=== PATIENT | female | born 1975 | race Asian ===

== ENCOUNTER 2016-10-31 15:51 | Emergency (ER) | payer MEDICAID ==
[2016-10-31 16:06] VITALS: BP 128/82
--- NOTE | 2016-10-31 17:59 | EDM.PDOC ---
[id number]: BITE ON BACKSIDE, [id number] Time Seen by Provider: 10/31/16 17:59 Source of Information: Reports: Patient, RN, RN Notes Reviewed History Limitations: Reports: No Limitations - History of Present Illness INITIAL COMMENTS - FREE TEXT/NARRATIVE: C/O abscess on Rt buttock. Onset 1 week ago of either an insect bite or a pimple on the Rt buttock. Pt tried to squeeze and pop it, but the next day it was much larger and red. Now for the past several days the area has become red, hot, firm/swollen and very painful. Denies fever or chills. No spontaneous drainage. Duration: Week(s): (1) Quality: Reports: Ache, Throbbing Severity: Severe Improves with: Reports: None Worsens with: Reports: None Associated Symptoms: Reports: No Other Symptoms Rectal Pain Score (Numeric/FACES): 8 - Related Data Allergies Allergy/AdvReac Type Severity Reaction Status Date / Time morphine Allergy Hallucinati Verified 10/31/16 16:07 ons Sulfa (Sulfonamide Allergy Hives Verified 10/31/16 16:07 Antibiotics) sulfamethoxazole Allergy Hives Verified 10/31/16 16:07 [From Bactrim] trimethoprim [From Bactrim] Allergy Hives Verified 10/31/16 16:07 Home Meds: Home Meds Acetaminophen [Tylenol] 975 mg PO ASDIRECTED PRN 10/31/16 [History] Ibuprofen [IJP: Ibuprofen] 600 mg PO ASDIRECTED 10/31/16 [History] Past Medical History HEENT History: Reports: None Cardiovascular History: Reports: None Respiratory History: Reports: None Gastrointestinal History: Reports: None Genitourinary History: Reports: None Musculoskeletal History: Reports: None Neurological History: Reports: None Psychiatric History: Reports: None Endocrine/Metabolic History: Reports: None Hematologic History: Reports: None Immunologic History: Reports: None Oncologic (Cancer) History: Reports: None Dermatologic History: Reports: None - Infectious Disease History Infectious Disease History: Reports: Chicken Pox, Mumps - Past Surgical History Head Surgeries/Procedures: Reports: None Social & Family History - Family History Family Medical History: Noncontributory - Tobacco Use Smoking Status *Q: Never Smoker Second Hand Smoke Exposure: No - Caffeine Use Caffeine Use: Reports: Coffee, Soda - Recreational Drug Use Recreational Drug Use: No - Living Situation & Occupation Living situation: Reports: , with Family Occupation: Employed ED ROS GENERAL - Review of Systems Review Of Systems: ROS reveals no pertinent complaints other than HPI. ED EXAM, ANIMAL BITE - Physical Exam Exam: See Below Exam Limited By: No Limitations General Appearance: Alert, WD/WN, No Apparent Distress, Obese Respiratory/Chest: No Respiratory Distress, Lungs Clear, Normal Breath Sounds, No Accessory Muscle Use, Chest Non-Tender Cardiovascular: Regular Rate, Rhythm Back Exam: Normal Inspection Extremities: Normal Inspection Neurological: Alert, Oriented, Normal Cognition, Normal Gait, No Motor/Sensory Deficits Psychiatric: Normal Affect, Normal Mood Skin Exam: Other (Rt buttock abscess 4cm diameter of tender, erythematous, fluctuant surface with 8cm liss. erythema.) ED ANIMAL BITE PROCEDURES - I&D Site: Rt buttock Skin Prep: Chlorhexidine (Hibiciens), Saline Local Anesthesia: Lidocaine: 1% Plain Local Anesthetic Volume: Other (30cc) Area Incised With: 11 Blade Drainage: Purulent, Large Amount Probed to Break Up Loculations: Yes Packed With: 1/4 in. Iodoform Sterile Dressinx4(s) Complications: No Course - Vital Signs Last Recorded V/S: Last Vital Signs Temp 35.3 C 10/31/16 15:59 Pulse 81 10/31/16 15:59 Resp 16 10/31/16 15:59 BP 128/82 10/31/16 15:59 Pulse Ox 99 10/31/16 15:59 - Orders/Labs/Meds Orders: Active Orders 24 hr Category Date Time Status CULTURE WOUND [RM] Stat Lab 10/31/16 19:10 Received Meds: Medications Discontinued Medications Generic Name Dose Route Start Last Admin Trade Name Tyshawn PRN Reason Stop Dose Admin Bacitracin 1 dose 10/31/16 18:09 10/31/16 19:22 Bacitracin Oint 1 Gm TOP 10/31/16 18:10 1 dose ONETIME ONE Administration Cephalexin 500 mg 10/31/16 18:10 10/31/16 18:49 Keflex PO 10/31/16 18:11 500 mg ONETIME ONE Administration Clindamycin HCl 300 mg 10/31/16 18:10 10/31/16 18:48 Cleocin PO 10/31/16 18:11 300 mg ONETIME ONE Administration Ketorolac Tromethamine 60 mg 10/31/16 18:09 10/31/16 18:50 Toradol IM 10/31/16 18:10 60 mg ONETIME ONE Administration Lidocaine HCl 30 ml 10/31/16 18:11 10/31/16 19:10 Xylocaine-Mpf 1% INJECT 10/31/16 18:12 30 ml ONETIME ONE Administration Departure - Departure Time of Disposition: 19:22 Disposition: Home, Self-Care 01 Condition: good Clinical Impression: Abscess of buttock, right - Discharge Information Instructions: Incision and Drainage, Care After, Abscess Forms: ED Department Discharge Additional Instructions: RX: [place] 5mh/325mg. RX: Clindamycin 300mg. Twice daily dressing changes. Follow up in 2 days for removal of packing and recheck. Return to ER if worse at any time. - My Orders Last 24 Hours: My Active Orders 10/31/16 19:10 CULTURE WOUND [RM] Stat - Assessment/Plan Last 24 Hours: My Active Orders 10/31/16 19:10 CULTURE WOUND [RM] Stat
[2016-10-31] MEDS ORDERED: Bacitracin Oint 1 GM U/D Packet TOP ONE (18:09)
[2016-10-31] MEDS ORDERED: Ketorolac 30 MG/ML SDV IM ONE (18:09)
[2016-10-31] MEDS ORDERED: Clindamycin HCl 150 MG Cap PO ONE (18:10)
[2016-10-31] MEDS ORDERED: Cephalexin 500 MG Cap PO ONE (18:10)
[2016-10-31] MEDS ORDERED: Lidocaine 1% 30 ML SDV INJECT ONE (18:11)
== END 2016-10-31 19:42 | disposition home or self-care (01) ==
LOC: DL.ED 15:51 → EEVIPCON 15:51 → EDSEX 15:51 → DL.ED 19:42
DX: L02.31 Cutaneous abscess of buttock (principal); Z88.5 Allergy status to narcotic agent; Z88.2 Allergy status to sulfonamides; Z88.8 Allergy status to other drugs, medicaments and biological substances; Z88.1 Allergy status to other antibiotic agents
CPT/HCPCS: 10060; 87070; 87077; 87186; 96372; 99283; A9270; J1885; 10061; 99282

== ENCOUNTER 2017-03-02 10:47 | Emergency (ER) | payer MEDICAID ==
[2017-03-02 11:36] VITALS: BP 132/81
--- NOTE | 2017-03-02 12:12 | EDM.PDOC ---
ED HPI GENERAL MEDICAL PROBLEM - General Chief Complaint: General Stated Complaint: COUGH, FEVER Time Seen by Provider: 03/02/17 12:06 Source of Information: Reports: Patient History Limitations: Reports: No Limitations - History of Present Illness INITIAL COMMENTS - FREE TEXT/NARRATIVE: 41 yo white female c/o cough w/ postnasal drip. Onset Date: 02/23/17 Onset Time: 12:00 Duration: Day(s): Location: Reports: Head, Chest Severity: Mild Improves with: Reports: None Worsens with: Reports: None Associated Symptoms: Reports: Cough - Related Data Allergies Allergy/AdvReac Type Severity Reaction Status Date / Time morphine Allergy Hallucinati Verified 03/02/17 11:31 ons Sulfa (Sulfonamide Allergy Hives Verified 03/02/17 11:31 Antibiotics) sulfamethoxazole Allergy Hives Verified 03/02/17 11:31 [From Bactrim] trimethoprim [From Bactrim] Allergy Hives Verified 03/02/17 11:31 Home Meds: Home Meds Acetaminophen [Tylenol] 975 mg PO ASDIRECTED PRN 10/31/16 [History] Ibuprofen [IJP: Ibuprofen] 600 mg PO ASDIRECTED 10/31/16 [History] Past Medical History HEENT History: Reports: Impaired Vision Cardiovascular History: Reports: None Respiratory History: Reports: None Gastrointestinal History: Reports: None Genitourinary History: Reports: None 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 Musculoskeletal History: Reports: None Neurological History: Reports: None Psychiatric History: Reports: None Endocrine/Metabolic History: Reports: None Hematologic History: Reports: None Immunologic History: Reports: None Oncologic (Cancer) History: Reports: None Dermatologic History: Reports: None - Infectious Disease History Infectious Disease History: Reports: Chicken Pox, Mumps - Past Surgical History Head Surgeries/Procedures: Reports: None Social & Family History - Family History Family Medical History: Noncontributory - Tobacco Use Smoking Status *Q: Former Smoker Used Tobacco, but Quit: Yes Month Tobacco Last Used: 02/20/17 Second Hand Smoke Exposure: No - Caffeine Use Caffeine Use: Reports: Coffee, Soda - Recreational Drug Use Recreational Drug Use: No - Living Situation & Occupation Living situation: Reports: , with Family Occupation: Employed ED ROS GENERAL - Review of Systems Review Of Systems: See Below Constitutional: Reports: No Symptoms HEENT: Reports: No Symptoms Respiratory: Reports: Cough (dry) Cardiovascular: Reports: No Symptoms Endocrine: Reports: No Symptoms GI/Abdominal: Reports: No Symptoms : Reports: No Symptoms Musculoskeletal: Reports: No Symptoms Skin: Reports: No Symptoms Neurological: Reports: No Symptoms Psychiatric: Reports: No Symptoms Hematologic/Lymphatic: Reports: No Symptoms Immunologic: Reports: No Symptoms ED EXAM, GENERAL - Physical Exam Exam: See Below Exam Limited By: No Limitations General Appearance: Alert, No Apparent Distress, Obese Eye Exam: Bilateral Eye: PERRL Ears: Normal External Exam Ear Exam: Bilateral Ear: TM Bulging Nose: Normal Inspection Throat/Mouth: Normal Inspection, Normal Lips Head: Atraumatic Neck: Normal Inspection, Supple Respiratory/Chest: No Respiratory Distress, Lungs Clear, Normal Breath Sounds Cardiovascular: Normal Peripheral Pulses GI/Abdominal: Normal Bowel Sounds Back Exam: Normal Inspection Extremities: Normal Inspection, Normal Range of Motion Neurological: Alert, Oriented, CN II-XII Intact Psychiatric: Normal Affect, Normal Mood Skin Exam: Warm, Dry, Intact Lymphatic: No Adenopathy Course - Vital Signs Last Recorded V/S: Last Vital Signs Temp 36.7 C 03/02/17 11:34 Pulse 80 03/02/17 11:34 Resp 18 03/02/17 11:34 BP 132/81 03/02/17 11:34 Pulse Ox 98 03/02/17 11:34 Departure - Departure Time of Disposition: 12:14 Disposition: Home, Self-Care 01 Condition: Good Clinical Impression: Congestion of paranasal sinus, Cough in adult patient - Discharge Information Additional Instructions: Increase fluids ( Water / Juice) Try using a Vics Vaporizer at home Wear face mask when at work ( due to coughing) For the sinus congestion: CLARITIN 10mg QD # 10 For the cough : TESSALON PERLES 100mg TID # 20 F/U w/ PCP
== END 2017-03-02 12:19 | disposition home or self-care (01) ==
LOC: DL.ED 10:47
DX: J34.89 Other specified disorders of nose and nasal sinuses (principal); R05 Cough; Z87.891 Personal history of nicotine dependence; Z88.1 Allergy status to other antibiotic agents; Z88.2 Allergy status to sulfonamides; Z88.5 Allergy status to narcotic agent
CPT/HCPCS: 99283

== ENCOUNTER 2017-08-24 16:51 | Emergency (ER) | payer BC, MEDICAID ==
[2017-08-24 17:06] VITALS: BP 140/82
[2017-08-24] MEDS ORDERED: Sodium Chloride 0.9% 10 ML Syringe FLUSH PRN (17:24)
[2017-08-24] MEDS ORDERED: Ondansetron 4 MG/2 ML SDV IV ONE (17:24)
[2017-08-24] MEDS ORDERED: Sodium Chloride 0.9% 1,000 ML IV ONE ×2 (17:24→18:40)
[2017-08-24 18:02] LABS: CHLORIDE,CL 101 mmol/L (101-111); SODIUM,NA 135 mmol/L (135-145)
[2017-08-24] MEDS ORDERED: Meclizine 12.5 MG Tab PO ONE (18:41)
--- NOTE | 2017-08-24 20:01 | EDM.PDOC ---
Addendum entered and electronically signed by Geovanni Mckay PA 08/24/17 19: 59: DX: Dehydration, Gastroenteritis Plan: The patient was advised of the examination and lab results during the visit. The patient was given IV fluids and a dose of Meclizine while in the ED. The patient was encouraged to stick to a BRAT diet over the next 24-48 hours. If the patient has any additional symptoms or concerns, the patient should either follow-up with her primary care facility or return to the emergency department. Original Note: Scribed by Sophie Lau 08/25/17 1557 for Maureen Luna NP ED HPI GENERAL MEDICAL PROBLEM - General Chief Complaint: Gastrointestinal Problem Stated Complaint: VERTIGO [id number] Time Seen by Provider: 08/24/17 17:15 - Related Data Allergies Allergy/AdvReac Type Severity Reaction Status Date / Time morphine Allergy Hallucinati Verified 03/02/17 11:31 ons Sulfa (Sulfonamide Allergy Hives Verified 03/02/17 11:31 Antibiotics) sulfamethoxazole Allergy Hives Verified 03/02/17 11:31 [From Bactrim] trimethoprim [From Bactrim] Allergy Hives Verified 03/02/17 11:31 Home Meds: Home Meds Acetaminophen [Tylenol] 975 mg PO ASDIRECTED PRN 10/31/16 [History] Ibuprofen [IJP: Ibuprofen] 600 mg PO ASDIRECTED 10/31/16 [History] ED ROS GENERAL - Review of Systems Review Of Systems: ROS reveals no pertinent complaints other than HPI. ED EXAM, GI/ABD - Physical Exam Exam: See Below Course - Vital Signs Last Recorded V/S: Last Vital Signs Temp 97.8 F 08/24/17 16:54 Pulse 100 08/24/17 16:54 Resp 18 08/24/17 16:54 BP 140/82 08/24/17 16:54 Pulse Ox 100 08/24/17 16:54 - Orders/Labs/Meds Orders: Active Orders 24 hr Category Date Time Status Peripheral IV Care [RC] . DIRECTED Care 08/24/17 17:24 Active HCG QUALITATIVE,URINE [URCHEM] Stat Lab 08/24/17 17:26 Ordered UA W/MICROSCOPIC [URIN] Stat Lab 08/24/17 17:26 Ordered Peripheral IV Insertion Adult [OM.PC] Stat Oth 08/24/17 17:23 Ordered Labs: Laboratory Tests 08/24/17 08/24/17 08/24/17 Range/Units 17:26 17:26 17:36 WBC 10.5 H (5.0-10.0) 10^3/uL RBC 4.84 (4.2-5.4) 10^6/uL Hgb 13.3 (12.0-16.0) g/dL Hct 40.5 (37.0-47.0) % MCV 83.7 (80-100) fL MCH 27.5 (27.0-34.0) pg MCHC 32.8 L (33.0-35.0) g/dL Plt Count 327 (150-450) 10^3/uL Neut % (Auto) 63.1 (42.2-75.2) % Lymph % (Auto) 28.2 (20.5-50.1) % [place] % (Auto) 6.3 (2-8) % Eos % (Auto) 2.2 (1.0-3.0) % Baso % (Auto) 0.2 (0.0-1.0) % Sodium (135-145) mmol/L Potassium (3.6-5.0) mmol/L Chloride (101-111) mmol/L Carbon Dioxide (21.0-31.0) mmol/L Anion Gap BUN (7-18) mg/dL Creatinine (0.6-1.3) mg/dL Est Cr Clr Drug Dosing mL/min Estimated GFR (MDRD) BUN/Creatinine Ratio Glucose (74-105) mg/dL Calcium (8.4-10.2) mg/dl Total Bilirubin (0.2-1.0) mg/dL AST (10-42) IU/L ALT (10-60) IU/L Alkaline Phosphatase (42-121) IU/L Troponin I (0.00-0.02) ng/ml Total Protein (6.7-8.2) g/dl Albumin (3.2-5.5) g/dl Globulin Albumin/Globulin Ratio Urine Color Yellow (YELLOW) Urine Appearance Clear (CLEAR) Urine pH 6.5 (5.0-9.0) Ur Specific [place] 1.025 (1.005-1.030) Urine Protein Negative (NEGATIVE) Urine Glucose (UA) Negative (NEGATIVE) Urine Ketones Negative (NEGATIVE) Urine Occult Blood Negative (NEGATIVE) Urine Nitrite Negative (NEGATIVE) Urine Bilirubin Negative (NEGATIVE) Urine Urobilinogen 0.2 (0.2-1.0) mg/dL Ur Leukocyte Esterase Trace H (NEGATIVE) Urine RBC 0-5 /HPF Urine WBC 0-5 (0-5/HPF) /HPF Ur Epithelial Cells Moderate H /HPF Urine Bacteria Few (0-FEW/HPF) /HPF Urine Mucus Moderate H /LPF Urine HCG, Qual Negative 08/24/17 Range/Units 17:36 WBC (5.0-10.0) 10^3/uL RBC (4.2-5.4) 10^6/uL Hgb (12.0-16.0) g/dL Hct (37.0-47.0) % MCV (80-100) fL MCH (27.0-34.0) pg MCHC (33.0-35.0) g/dL Plt Count (150-450) 10^3/uL Neut % (Auto) (42.2-75.2) % Lymph % (Auto) (20.5-50.1) % [place] % (Auto) (2-8) % Eos % (Auto) (1.0-3.0) % Baso % (Auto) (0.0-1.0) % Sodium 135 (135-145) mmol/L Potassium 3.5 L (3.6-5.0) mmol/L Chloride 101 (101-111) mmol/L Carbon Dioxide 26.0 (21.0-31.0) mmol/L Anion Gap 11.5 BUN 16 (7-18) mg/dL Creatinine 0.6 (0.6-1.3) mg/dL Est Cr Clr Drug Dosing 115.51 mL/min Estimated GFR (MDRD) > 60 BUN/Creatinine Ratio 26.66 Glucose 110 H (74-105) mg/dL Calcium 8.8 (8.4-10.2) mg/dl Total Bilirubin 0.7 (0.2-1.0) mg/dL AST 17 (10-42) IU/L ALT 18 (10-60) IU/L Alkaline Phosphatase 45 (42-121) IU/L Troponin I < 0.02 (0.00-0.02) ng/ml Total Protein 7.2 (6.7-8.2) g/dl Albumin 3.8 (3.2-5.5) g/dl Globulin 3.4 Albumin/Globulin Ratio 1.12 Urine Color (YELLOW) Urine Appearance (CLEAR) Urine pH (5.0-9.0) Ur Specific [place] (1.005-1.030) Urine Protein (NEGATIVE) Urine Glucose (UA) (NEGATIVE) Urine Ketones (NEGATIVE) Urine Occult Blood (NEGATIVE) Urine Nitrite (NEGATIVE) Urine Bilirubin (NEGATIVE) Urine Urobilinogen (0.2-1.0) mg/dL Ur Leukocyte Esterase (NEGATIVE) Urine RBC /HPF Urine WBC (0-5/HPF) /HPF Ur Epithelial Cells /HPF Urine Bacteria (0-FEW/HPF) /HPF Urine Mucus /LPF Urine HCG, Qual Meds: Medications Discontinued Medications Generic Name Dose Route Start Last Admin Trade Name Freq PRN Reason Stop Dose Admin Sodium Chloride 1,000 mls @ 999 mls/hr 08/24/17 17:24 08/24/17 17:44 Normal Saline IV 08/24/17 18:24 999 mls/hr .BOLUS ONE Administration Sodium Chloride 1,000 mls @ 999 mls/hr 08/24/17 18:40 08/24/17 18:43 Normal Saline IV 08/24/17 19:40 999 mls/hr .BOLUS ONE Administration Meclizine HCl 25 mg 08/24/17 18:41 08/24/17 18:45 Antivert PO 08/24/17 18:42 25 mg ONETIME ONE Administration Ondansetron HCl 4 mg 08/24/17 17:24 08/24/17 17:44 Zofran IV 08/24/17 17:25 4 mg ONETIME ONE Administration Sodium Chloride 10 ml 08/24/17 17:24 08/24/17 17:44 Saline Flush FLUSH 10 ml ASDIRECTED PRN Administration Keep Vein Open Departure - Departure Time of Disposition: 20:12 Disposition: Home, Self-Care 01 Clinical Impression: Gastroenteritis, Dehydration - Discharge Information Instructions: Viral Gastroenteritis, Adult, [id number], Dehydration, Adult, [id number] Referrals: PCP,None [Primary Care Provider] - Forms: ED Department Discharge - My Orders Last 24 Hours: My Active Orders 08/24/17 17:23 Peripheral IV Insertion Adult [OM.PC] Stat 08/24/17 17:24 Peripheral IV Care [RC] . DIRECTED 08/24/17 17:26 HCG QUALITATIVE,URINE [URCHEM] Stat UA W/MICROSCOPIC [URIN] Stat - Assessment/Plan Last 24 Hours: My Active Orders 08/24/17 17:23 Peripheral IV Insertion Adult [OM.PC] Stat 08/24/17 17:24 Peripheral IV Care [RC] . DIRECTED 08/24/17 17:26 HCG QUALITATIVE,URINE [URCHEM] Stat UA W/MICROSCOPIC [URIN] Stat I have read and agree with the documentation that has been completed regarding this visit. By signing this record, I attest that the documentation was completed in my physical presence and is an accurate record of the encounter.
--- NOTE | 2017-09-02 19:51 | EDM.PDOC ---
ED HPI GENERAL MEDICAL PROBLEM - General Chief Complaint: Gastrointestinal Problem Stated Complaint: VERTIGO [id number] Time Seen by Provider: 08/24/17 17:15 Source of Information: Reports: Patient, RN, RN Notes Reviewed History Limitations: Reports: No Limitations - History of Present Illness INITIAL COMMENTS - FREE TEXT/NARRATIVE: Pt presents to the ER with c/o dizziness and nausea. She states she has felt tired, dizzy, and very nauseated recently. She admits to feeling "hot and cold" , headache. She denies chest pain, sob, sore throat or cough. Onset: Gradual - Related Data Allergies Allergy/AdvReac Type Severity Reaction Status Date / Time morphine Allergy Hallucinati Verified 03/02/17 11:31 ons Sulfa (Sulfonamide Allergy Hives Verified 03/02/17 11:31 Antibiotics) sulfamethoxazole Allergy Hives Verified 03/02/17 11:31 [From Bactrim] trimethoprim [From Bactrim] Allergy Hives Verified 03/02/17 11:31 Home Meds: Home Meds Acetaminophen [Tylenol] 975 mg PO ASDIRECTED PRN 10/31/16 [History] Ibuprofen [IJP: Ibuprofen] 600 mg PO ASDIRECTED 10/31/16 [History] Past Medical History HEENT History: Reports: Impaired Vision Cardiovascular History: Reports: None Respiratory History: Reports: None Gastrointestinal History: Reports: None Genitourinary History: Reports: None 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 Musculoskeletal History: Reports: None Neurological History: Reports: None Psychiatric History: Reports: None Endocrine/Metabolic History: Reports: None Hematologic History: Reports: None Immunologic History: Reports: None Oncologic (Cancer) History: Reports: None Dermatologic History: Reports: None - Infectious Disease History Infectious Disease History: Reports: Chicken Pox, Mumps - Past Surgical History Head Surgeries/Procedures: Reports: None Social & Family History - Family History Family Medical History: Noncontributory - Tobacco Use Smoking Status *Q: Former Smoker Used Tobacco, but Quit: Yes Month/Year Tobacco Last Used: 02/20/17 Second Hand Smoke Exposure: No - Caffeine Use Caffeine Use: Reports: Coffee, Soda - Recreational Drug Use Recreational Drug Use: No - Living Situation & Occupation Living situation: Reports: , with Family Occupation: Employed ED ROS GENERAL - Review of Systems Review Of Systems: ROS reveals no pertinent complaints other than HPI. ED EXAM, GI/ABD - Physical Exam Exam: See Below Exam Limited By: No Limitations General Appearance: Alert, WD/WN, Mild Distress Eyes: Bilateral: Normal Appearance, EOMI Ears: Normal External Exam, Hearing Grossly Normal Nose: Normal Inspection Throat/Mouth: Normal Inspection, Normal Voice, No Airway Compromise Head: Atraumatic, Normocephalic Neck: Normal Inspection, Supple, Non-Tender, Full Range of Motion Respiratory/Chest: No Respiratory Distress, Lungs Clear, Normal Breath Sounds, No Accessory Muscle Use, Chest Non-Tender Cardiovascular: Normal Peripheral Pulses, Regular Rate, Rhythm, No Edema, No Gallop, No JVD, No Murmur, No Rub GI/Abdominal Exam: Normal Bowel Sounds, Soft, Non-Tender, No Organomegaly, No Distention, No Abnormal Bruit, No Mass, Pelvis Stable (Female) Exam: Deferred Rectal (Female) Exam: Deferred Back Exam: Normal Inspection, Full Range of Motion, NT Extremities: Normal Inspection, Normal Range of Motion, Non-Tender, Normal Capillary Refill, No Pedal Edema Neurological: Alert, Oriented, CN II-XII Intact, Normal Cognition, Normal Gait, Normal Reflexes, No Motor/Sensory Deficits Psychiatric: Normal Affect, Normal Mood Skin Exam: Warm, Dry, Intact, Normal Color, No Rash Lymphatic: No Adenopathy Course - Vital Signs Last Recorded V/S: Last Vital Signs Temp 97.8 F 08/24/17 16:54 Pulse 100 08/24/17 16:54 Resp 18 08/24/17 16:54 BP 140/82 08/24/17 16:54 Pulse Ox 100 08/24/17 16:54 - Orders/Labs/Meds Labs: Laboratory Tests 08/24/17 08/24/17 08/24/17 Range/Units 17:26 17:26 17:36 WBC 10.5 H (5.0-10.0) 10^3/uL RBC 4.84 (4.2-5.4) 10^6/uL Hgb 13.3 (12.0-16.0) g/dL Hct 40.5 (37.0-47.0) % MCV 83.7 (80-100) fL MCH 27.5 (27.0-34.0) pg MCHC 32.8 L (33.0-35.0) g/dL Plt Count 327 (150-450) 10^3/uL Neut % (Auto) 63.1 (42.2-75.2) % Lymph % (Auto) 28.2 (20.5-50.1) % [place] % (Auto) 6.3 (2-8) % Eos % (Auto) 2.2 (1.0-3.0) % Baso % (Auto) 0.2 (0.0-1.0) % Sodium (135-145) mmol/L Potassium (3.6-5.0) mmol/L Chloride (101-111) mmol/L Carbon Dioxide (21.0-31.0) mmol/L Anion Gap BUN (7-18) mg/dL Creatinine (0.6-1.3) mg/dL Est Cr Clr Drug Dosing mL/min Estimated GFR (MDRD) BUN/Creatinine Ratio Glucose (74-105) mg/dL Calcium (8.4-10.2) mg/dl Total Bilirubin (0.2-1.0) mg/dL AST (10-42) IU/L ALT (10-60) IU/L Alkaline Phosphatase (42-121) IU/L Troponin I (0.00-0.02) ng/ml Total Protein (6.7-8.2) g/dl Albumin (3.2-5.5) g/dl Globulin Albumin/Globulin Ratio Urine Color Yellow (YELLOW) Urine Appearance Clear (CLEAR) Urine pH 6.5 (5.0-9.0) Ur Specific [place] 1.025 (1.005-1.030) Urine Protein Negative (NEGATIVE) Urine Glucose (UA) Negative (NEGATIVE) Urine Ketones Negative (NEGATIVE) Urine Occult Blood Negative (NEGATIVE) Urine Nitrite Negative (NEGATIVE) Urine Bilirubin Negative (NEGATIVE) Urine Urobilinogen 0.2 (0.2-1.0) mg/dL Ur Leukocyte Esterase Trace H (NEGATIVE) Urine RBC 0-5 /HPF Urine WBC 0-5 (0-5/HPF) /HPF Ur Epithelial Cells Moderate H /HPF Urine Bacteria Few (0-FEW/HPF) /HPF Urine Mucus Moderate H /LPF Urine HCG, Qual Negative 08/24/17 Range/Units 17:36 WBC (5.0-10.0) 10^3/uL RBC (4.2-5.4) 10^6/uL Hgb (12.0-16.0) g/dL Hct (37.0-47.0) % MCV (80-100) fL MCH (27.0-34.0) pg MCHC (33.0-35.0) g/dL Plt Count (150-450) 10^3/uL Neut % (Auto) (42.2-75.2) % Lymph % (Auto) (20.5-50.1) % [place] % (Auto) (2-8) % Eos % (Auto) (1.0-3.0) % Baso % (Auto) (0.0-1.0) % Sodium 135 (135-145) mmol/L Potassium 3.5 L (3.6-5.0) mmol/L Chloride 101 (101-111) mmol/L Carbon Dioxide 26.0 (21.0-31.0) mmol/L Anion Gap 11.5 BUN 16 (7-18) mg/dL Creatinine 0.6 (0.6-1.3) mg/dL Est Cr Clr Drug Dosing 115.51 mL/min Estimated GFR (MDRD) > 60 BUN/Creatinine Ratio 26.66 Glucose 110 H (74-105) mg/dL Calcium 8.8 (8.4-10.2) mg/dl Total Bilirubin 0.7 (0.2-1.0) mg/dL AST 17 (10-42) IU/L ALT 18 (10-60) IU/L Alkaline Phosphatase 45 (42-121) IU/L Troponin I < 0.02 (0.00-0.02) ng/ml Total Protein 7.2 (6.7-8.2) g/dl Albumin 3.8 (3.2-5.5) g/dl Globulin 3.4 Albumin/Globulin Ratio 1.12 Urine Color (YELLOW) Urine Appearance (CLEAR) Urine pH (5.0-9.0) Ur Specific [place] (1.005-1.030) Urine Protein (NEGATIVE) Urine Glucose (UA) (NEGATIVE) Urine Ketones (NEGATIVE) Urine Occult Blood (NEGATIVE) Urine Nitrite (NEGATIVE) Urine Bilirubin (NEGATIVE) Urine Urobilinogen (0.2-1.0) mg/dL Ur Leukocyte Esterase (NEGATIVE) Urine RBC /HPF Urine WBC (0-5/HPF) /HPF Ur Epithelial Cells /HPF Urine Bacteria (0-FEW/HPF) /HPF Urine Mucus /LPF Urine HCG, Qual Meds: Medications Discontinued Medications Generic Name Dose Route Start Last Admin Trade Name Tyshawn PRN Reason Stop Dose Admin Sodium Chloride 1,000 mls @ 999 mls/hr 08/24/17 17:24 08/24/17 17:44 Normal Saline IV 08/24/17 18:24 999 mls/hr .BOLUS ONE Administration Sodium Chloride 1,000 mls @ 999 mls/hr 08/24/17 18:40 08/24/17 18:43 Normal Saline IV 08/24/17 19:40 999 mls/hr .BOLUS ONE Administration Meclizine HCl 25 mg 08/24/17 18:41 08/24/17 18:45 Antivert PO 08/24/17 18:42 25 mg ONETIME ONE Administration Ondansetron HCl 4 mg 08/24/17 17:24 08/24/17 17:44 Zofran IV 08/24/17 17:25 4 mg ONETIME ONE Administration Sodium Chloride 10 ml 08/24/17 17:24 08/24/17 17:44 Saline Flush FLUSH 10 ml ASDIRECTED PRN Administration Keep Vein Open - Re-Assessments/Exams Free Text/Narrative Re-Assessment/Exam: 09/02/17 19:50 Care was turned over to HAI Alarcon. Departure - Departure Time of Disposition: 20:12 Disposition: Home, Self-Care 01 Clinical Impression: Gastroenteritis, Dehydration - Discharge Information Instructions: Viral Gastroenteritis, Adult, [id number], Dehydration, Adult, [id number] Referrals: PCP,None [Primary Care Provider] - Forms: ED Department Discharge
== END 2017-08-24 20:12 | disposition home or self-care (01) ==
LOC: DL.ED 16:51
DX: E86.0 Dehydration (principal); K52.9 Noninfective gastroenteritis and colitis, unspecified; Z88.5 Allergy status to narcotic agent; Z88.2 Allergy status to sulfonamides; Z88.1 Allergy status to other antibiotic agents; Z87.891 Personal history of nicotine dependence
CPT/HCPCS: 36415; 80053; 81001; 81025; 84484; 85025; 96361; 96374; 99284; A9270; J2405; J7030; J7050